=== PATIENT | female | born 1970 | race Caucasian/White ===

== ENCOUNTER 2020-05-22 11:30 | Outpatient (RCR) | payer BC, SELFPAY ==
--- NOTE | 2020-05-01 14:12 | PTOPEVAL ---
Thank you for referring Laure Randolph to [facility].? The patient is scheduled to be seen for therapy? 2 x/week for 6 weeks. Please review, sign, date and return this plan of care ELOY. I agree with and certify that the following plan of care is medically necessary. Referring Physician Date Attending Provider: Vinh Aguilera DO Referring Provider: *PT Outpatient Evaluation Start: 05/01/20 07:59 Freq: Status: Active Protocol: Document 05/01/20 07:59 ANTONIO (Rec: 05/01/20 09:01 ANTONIO [id number]) Therapy Assessment Status Assessment Status Assessment Status Evaluation Outpatient Past Medical History Past Medical History Source of Past Medical History Patient Neurological History Hx Neurological Disorders No Significant History Cardiovascular History Hx Cardiac Disorders No Significant History Respiratory History Hx Respiratory Disorders No Significant History Gastrointestinal History Hx Gastrointestinal Disorders No Significant History Reproductive History Hx Section Yes: x 3 Evaluation Information Problem Diagnosis back pain Onset 04/12/20 Cause lifting suitcase Subjective Information She reports increased back Query Text:As Reported By Patient/ pain and spasms after lifting Family suitcase from overhead compartment on a plane. Reports increased pain when changing position from sup to standing, static standing, lifting objects. States difficulty with ADL's and donning/doffing clothes, bending forward, and prolonged sitting. States improved pain with lying supine. She has tried self treatment without relief of symptoms. Dbl knee to chest did help give temporary relief of symptoms. Pain Assessment Timing of Pain Assessment Timing of Pain Assessment Assessment Pain Scale Pain Scale Used Numeric (1 - 10) Self Report Pain Assessment Bilateral Buttock(s) Reported Pain Level 4 Pain Description Aching,Dull,Radiating,Sharp, Tender on Palpation,With Movement Pain Frequency Intermittent Lowest Pain Intensity 0 Greatest Pain Intensity 8 Pain Aggravating Factors ADL's,Bending,Changing Position,Exercise
--- NOTE | 2020-06-03 14:24 | PCPTNOTE ---
Admitting Provider: Attending Provider: Vinh Aguilera DO Patient:Laure Randolph Date of :1970 Physical Therapy Discharge Note Patient has received 5 therapy visits to address her back and sacral pain. She is able to perform her normal daily activities with minimal changes in pain. She demonstrates improved trunk motion without increased pain and improved core stability with trunk position and stability. She is performing her stretching and strengthening program. She has achieved all but 1 therapy goal at this time. [facility] skilled therapy services at this time with pt to cont with her HEP. The goals have been partially met. Thank you for referring this patient to [facility]. Please review, sign, date and return this discharge summary ELOY. I have been updated about the patient's current status and I agree with discharge from the above service at this time. Referring Physician Date
== END 2020-07-16 10:45 | disposition home or self-care (01) ==
LOC: ANHPT 11:30
PROVIDERS: PCP Internal Medicine; Visit Provider Internal Medicine
DX: M54.9 Dorsalgia, unspecified (principal); M53.3 Sacrococcygeal disorders, not elsewhere classified
CPT/HCPCS: 97110; 97112; 97140; 97162

== ENCOUNTER 2020-08-19 08:17 | Outpatient (CLI) | payer BC, SELFPAY ==
[2020-08-19 08:43] LABS: Basophils Percent Auto 0.3 % (0.2-1.2); Eosinophils Absolute Auto 0.3 K/mm3 (0-0.3); Eosinophils Percent Auto 4.6 % (0-4.4); Hematocrit 35.6 % (37.0-47.0); Hemoglobin 12.1 g/dL (12.0-15.0); Immature Granulocyte Absolute 0.03 K/mm3 (0.00-0.031); Immature Granulocyte Percent A 0.5 % (0-0.5); Lymphocytes Absolute Auto 1.71 K/mm3 (0.9-3.2); Lymphocytes Percent Auto 27.9 % (18.3-44.2); Mean Corpuscular Hemoglobin 30.2 pg (26-34); Mean Corpuscular Volume 88.8 fl (80-100); Mean Platelet Volume 8.9 fl (7.4-10.4); Monocytes Absolute Auto 0.5 K/mm3 (0.1-0.6); Monocytes Percent Auto 8.3 % (2.6-8.5); Neutrophils Absolute Auto 3.6 K/mm3 (1.3-6.7); Neutrophils Percent Auto 58.4 % (45.5-73.1); Platelet Count Result 169 k/mm3 (150-375); Red Blood Count 4.01 M/mm3 (4.2-5.4); Red Cell Distribution Width 12.2 % (11.5-14.5); White Blood Count 6.1 K/mm3 (4.5-10.0)
[2020-08-19 09:07] LABS: LDL Cholesterol Direct 85 mg/dL
[2020-08-19 09:11] LABS: Alanine Aminotransferase 41 U/L (4-35); Albumin Level 4.2 g/dL (3.5-5.1); Alkaline Phosphatase 50 U/L (38-126); Anion Gap 6 mmol/L (8-16); Aspartate Amino Transferase 38 U/L (14-36); Bilirubin,Total 0.7 mg/dL (0.2-1.3); Blood Urea Nitrogen 13 mg/dL (7-17); Calcium 9.5 mg/dL (8.4-10.2); Carbon Dioxide 29 mmol/L (22-30); Chloride 104 mmol/L (98-107); Cholesterol 171 mg/dL (0-200); Estimated Glomerular Filt Rate > 60; Glucose 106 mg/dL (65-105); HDL Direct 57 mg/dL; Potassium 4.3 mmol/L (3.4-5.0); Sodium 139 mmol/L (137-145); Triglycerides 70 mg/dL (<150)
[2020-08-19 09:29] LABS: Iron 70 ug/dL (37-170)
[2020-08-19 09:41] LABS: Percent Iron Saturation 21 % (20-50)
[2020-08-19 10:07] LABS: Folic Acid 8.3 ng/mL (2.76->20)
== END 2020-08-19 08:18 | disposition home or self-care (01) ==
PROVIDERS: PCP Internal Medicine; Visit Provider Internal Medicine
DX: Z00.00 Encounter for general adult medical examination without abnormal findings (principal); D64.9 Anemia, unspecified
CPT/HCPCS: 36415; 80053; 80061; 82607; 82746; 83540; 83550; 84443; 85025

== ENCOUNTER 2022-02-26 07:23 | Outpatient (CLI) | payer BC, SELFPAY ==
--- NOTE | ~2022-02-26 | MM_ITS ---
EXAMINATION: MM screening muang BI w leidy HISTORY: Screening TECHNIQUE: Craniocaudal and mediolateral oblique 3-D tomosynthesis images were obtained and synthetic 2-D images were generated. CAD analysis was submitted and interpreted. COMPARISON: Comparison to multiple prior studies sequentially, with oldest reviewed study dated 09/13. BREAST PARENCHYMAL COMPOSITION: There are scattered areas of fibroglandular density. FINDINGS: There is no evidence of suspicious mass, calcification, or architectural distortion to sugg est malignancy in either breast. There has been no suspicious interval change. IMPRESSION: 1. No mammographic evidence of malignancy. 2. Recommend routine screening mammography in one year. BI-RADS Category 1: Negative Reviewed, dictated and finalized at location L.
== END 2022-02-26 07:24 | disposition home or self-care (01) ==
LOC: ANHIMG 07:26
PROVIDERS: PCP Internal Medicine
DX: Z12.31 Encounter for screening mammogram for malignant neoplasm of breast (principal)
CPT/HCPCS: 77063; 77067

== ENCOUNTER → 2022-03-02 13:59 | Outpatient (CLI) | payer BC, SELFPAY ==
--- NOTE | ~2022-03-02 | US_ITS ---
EXAMINATION: US transvaginal DATE: 03/02/2022 14:28 INDICATION: Irregular menstruation cycles Comparison:The ultrasound dated 05/16/2014 TECHNIQUE: Multiple transabdominal and endovaginal sonographic images of the pelvis performed. FINDINGS: The uterus measures 8.1 x 4.1 x 4.8 cm. Uterine myometrium is somewhat heterogeneous withou t discrete mass. The endometrial complex measures 7 mm. The right ovary measures 2 x 1.8 x 1.2 cm and the left ovary measures 1.7 x 1.5 x .6 cm. There are s mall follicles in each ovary. Normal doppler signal in both ovaries. There is no free fluid in the pelvis. There are no abnormal masses seen on either side. IMPRESSION: 1. Normal pelvic ultrasound. Reviewed, dictated and finalized at location A.
== END ==
PROVIDERS: PCP Internal Medicine
DX: N92.6 Irregular menstruation, unspecified (principal)
CPT/HCPCS: 76830

== ENCOUNTER 2024-07-14 07:46 | Outpatient (CLI) | payer BC, SELFPAY ==
--- NOTE | ~2024-07-14 | MM_ITS ---
EXAMINATION: MM screening umang BI w leidy HISTORY: Screening mammogram TECHNIQUE: Craniocaudal and mediolateral oblique 3-D tomosynthesis images were obtained and synthetic 2-D images were generated. CAD analysis was submitted and interpreted. COMPARISON: 02/26/2022, 11/24/2018 bilateral screening mammogram examinations BREAST PARENCHYMAL COMPOSITION: There are scattered areas of fibroglandular density. FINDINGS: There is no evidence of suspicious mass, calcification, or architectural distortion to sugg est malignancy in either breast. There has been no suspicious interval change. IMPRESSION: 1. No mammographic evidence of malignancy. 2. Recommend routine screening mammography in one year. BI-RADS Category 1: Negative Reviewed, dictated and finalized at location A. OR QA ENGINEER
== END 2024-07-14 07:47 | disposition home or self-care (01) ==
PROVIDERS: PCP Family Medicine; Visit Provider Student in an Organized Health Care Education/Training Program
DX: Z12.31 Encounter for screening mammogram for malignant neoplasm of breast (principal)
CPT/HCPCS: 77063; 77067